=== PATIENT | male | born 1955 | race Caucasian/White ===

== ENCOUNTER 2018-01-27 11:42 | Emergency (ER) | payer OTHER ==
--- NOTE | 2018-01-27 13:04 | RAD REPORT ---
EXAM DESCRIPTION: RAD - Pelvis - 01/27/2018 12:45 pm CLINICAL HISTORY: Fall a few weeks earlier, persistent pelvic and hip pain, history of prior fracture fixation on the l eft. COMPARISON: None. TECHNIQUE: AP imaging of the pelvis was obtained. FINDINGS: No fracture of the bony pelvis. No dislocation of either proximal femur. Surgical hardware is present on the left. Mild SI joint degenerative change and mild lower lumbar degenerative change. Phleboliths are present in the lower pelvis. Arterial calcifications are seen. No soft tissue abnormality. IMPRESSION: Degenerative changes to the pelvis with no acute findings seen.
--- NOTE | 2018-01-27 13:05 | RAD REPORT ---
EXAM DESCRIPTION: RAD - Hip Left 2 View - 01/27/2018 12:44 pm CLINICAL HISTORY: Fall several weeks earlier with persistent hip pain and pelvic pain, history of pr ior left femur fracture repair COMPARISON: No remote imaging available. FINDINGS: AP and frogleg views of the left hip were obtained. No acute fracture of the proximal femu r and no dislocation of the femoral head. No AVN identified in the femoral head. No fracture of the h ardware. No gross evidence for hardware migration. No acute or destructive bony process seen. Left angelika pelvis shows no acute component. No suspicious soft tissue finding. IMPRESSION: Negative left hip examination for acute or significant findings. Old fracture fixation hardware is in place. No acute hardware finding suspected.
[2018-01-27] MEDS ORDERED: KETOROLAC 30 MG/ML INJ ONE (13:39)
--- NOTE | 2018-01-27 14:28 | ER ---
Nurse's Notes [facility] Name: Abdiaziz Hernández Age: 62 yrs Sex: Male : 1955 Arrival Date: 01/27/2018 Time: 11:44 Bed 13 Private MD: Diagnosis: Pain in left hip Presentation: 01/27 11:50 Presenting complaint: Patient states: I had a fall a few weeks ago and landed on my la1 left hip which I have a shanique and screw in and I have a lot of pain there, I also have not been to a doctor for 4 years and I want to make sure nothing else is going on. Pt reports "I don't breathe as good as I use to and I use to be on a medication to help with my wheezing but I ran out". Transition of care: patient was not received from another setting of care. Onset of symptoms was January 27, 2018. Risk Assessment: Do you want to hurt yourself or someone else? Patient reports no desire to harm self or others. Initial Sepsis Screen: Does the patient meet any 2 criteria? No. Patient's initial sepsis screen is negative. Does the patient have a suspected source of infection? No. Patient's initial sepsis screen is negative. Care prior to arrival: None. 11:50 Method Of Arrival: Wheelchair la1 11:50 Acuity: RENETTA 3 la1 Historical: - Allergies: 11:52 No Known Allergies; la1 - Home Meds: 11:55 none [Active]; rb1 - PMHx: 11:52 Hypertension; unknown psych disorder; hepatitis C; la1 - PSHx: 11:52 left hip; right wrist; la1 - Immunization history:: Adult Immunizations up to date. - Social history:: Smoking status: Patient uses tobacco products, smokes one-half pack cigarettes per day. - Ebola Screening: : No symptoms or risks identified at this time. Screenin:55 Abuse screen: Denies threats or abuse. Nutritional screening: No deficits noted. rb1 Tuberculosis screening: No symptoms or risk factors identified. Fall Risk Fall in past 12 months (25 points). Secondary diagnosis (15 points) impaired mobility, No IV (0 pts). Ambulatory Aid- Crutches/Cane/Walker (15 pts). Gait- Impaired (20 pts.). Mental Status- Oriented to own ability (0 pts). Total West Fall Scale indicates High Risk Score (45 or more points). Fall prevention measures have been instituted. Side Rails Up X 2 Placed Close to Nursing Station 1:1 Attendant Assigned Frequent Obs/Assessments Occuring Family Present and informed to notify staff if the need to leave the bedside As available patient and family educated on Fall Prevention Program and Strategies. Assessment: 11:55 General: Appears unkempt, Behavior is calm, cooperative. General: Smells of alcohol. rb1 Pain: Complains of pain in left hip Pain currently is 8 out of 10 on a pain scale. Pain began x 2 weeks. Neuro: Level of Consciousness is awake, alert, obeys commands, Oriented to person, place, time, situation. Cardiovascular: Capillary refill < 3 seconds is brisk in bilateral fingers. Respiratory: Reports shortness of breath Airway is patent Respiratory effort is even, unlabored, Respiratory pattern is regular, symmetrical. GI: No signs and/or symptoms were reported involving the gastrointestinal system. : No signs and/or symptoms were reported regarding the genitourinary system. Derm: Skin is dry, Skin is normal, Skin temperature is warm. Musculoskeletal: Range of motion: intact in all extremities, Pt. ambulates with cane. Injury Description: Fell 2 weeks ago. 12:50 Reassessment: Patient appears in no apparent distress at this time. No changes from rb1 previously documented assessment. Brother at bedside. 13:46 Reassessment: Patient appears in no apparent distress at this time. Patient and/or rb1 family updated on plan of care and expected duration. Pain level reassessed. Patient is alert, oriented x 3, equal unlabored respirations, skin warm/dry/pink. Pt. medicated for pain. 14:40 Reassessment: Patient appears in no apparent distress at this time. Patient and/or rb1 family updated on plan of care and expected duration. Pain level reassessed. Patient is alert, oriented x 3, equal unlabored respirations, skin warm/dry/pink. Pt. ambulated up and down the alicia without difficulty. Vital Signs: 11:53 BP 128 / 90; Pulse 91; Resp 16; Temp 98.0; Pulse Ox 92% on R/A; Weight 72.57 kg; Height la1 5 ft. 11 in. (180.34 cm); 12:50 BP 129 / 85; Pulse 84; Resp 18; Pulse Ox 99% on R/A; rb1 13:48 BP 125 / 79; Pulse 81; Resp 19; Pulse Ox 98% on R/A; rb1 14:40 BP 124 / 81; Pulse 88; Resp 17; Pulse Ox 98% on R/A; rb1 11:53 Body Mass Index 22.32 (72.57 kg, 180.34 cm) la1 ED Course: 11:44 Patient arrived in ED. as 11:52 Triage completed. la1 11:53 Arm band placed on left wrist. la1 11:55 Patient has correct armband on for positive identification. Bed in low position. Call rb1 light in reach. Side rails up X2. Pulse ox on. NIBP on. 11:56 Yahir Brice PA is PHCP. cp 11:57 Anup Mckeon MD is Attending Physician. cp 12:20 Urvashi Larson, RN is Primary Nurse. rb1 12:37 XRAY Pelvis In Process Unspecified. EDMS 12:37 XRAY Hip LEFT 2 view In Process Unspecified. EDMS 14:44 No provider procedures requiring assistance completed. Patient did not have IV access rb1 during this emergency room visit. Administered Medications: 13:35 Drug: TORadol 60 mg Route: IM; Site: right gluteus; rb1 14:05 Follow up: Response: No adverse reaction; Pain is decreased; pain 5/10 rb1 Intake: Outcome: 14:28 Discharge ordered by MD. cp 14:44 Patient left the ED. rb1 14:44 Discharged to home via wheelchair, with family. rb1 14:44 Condition: stable 14:44 Discharge instructions given to patient, Instructed on discharge instructions, follow up and referral plans. medication usage, Demonstrated understanding of instructions, follow-up care, medications, Prescriptions given X 1. Signatures: Dispatcher [employer] EDMS Anabella Pisano Lee RN RN la1 Yahir Brice PA PA cp Urvashi Larson, RN RN rb1
--- NOTE | 2018-01-27 14:28 | EDPHYS ---
Physician Documentation [facility] Name: Abdiaziz Hernández Age: 62 yrs Sex: Male : 1955 Arrival Date: 01/27/2018 Time: 11:44 Bed 13 Private MD: ED Physician Anup Mckeon HPI: 01/27 12:15 This 62 yrs old Male presents to ER via Wheelchair with complaints of Hip cp Pain, Rib Pain. 12:15 The patient or guardian reports pain. sustained from a fall, The patient is able to cp self ambulate. The patient is able to bear their full body weight. The complaints affect the left hip. Onset: The symptoms/episode began/occurred "few weeks" ago. 12:15 Associated signs and symptoms: Pertinent negatives: abdominal pain, altered mental cp status, chest pain, diarrhea, fever, headache, vomiting, weakness. 12:15 Patient c/o continued left hip pain since fall "several weeks" ago. Reports he believes cp he broke a rib with fall, but reports continued pain and difficulty ambulating due to left hip pain. Historical: - Allergies: 11:52 No Known Allergies; la1 - Home Meds: 11:55 none [Active]; rb1 - PMHx: 11:52 Hypertension; unknown psych disorder; hepatitis C; la1 - PSHx: 11:52 left hip; right wrist; la1 - Immunization history:: Adult Immunizations up to date. - Social history:: Smoking status: Patient uses tobacco products, smokes one-half pack cigarettes per day. - Ebola Screening: : No symptoms or risks identified at this time. ROS: 12:20 MS/extremity: Positive for pain, of the left hip, Negative for decreased range of cp motion, deformity. 12:20 Eyes: Negative for injury, pain, redness, and discharge. cp 12:20 Constitutional: Negative for body aches, chills, fever, poor PO intake. 12:20 Cardiovascular: Negative for chest pain, edema, palpitations. 12:20 Respiratory: Negative for cough, shortness of breath, wheezing. 12:20 Abdomen/GI: Negative for abdominal pain, nausea, vomiting, and diarrhea. 12:20 Neuro: Negative for altered mental status, headache, weakness. 12:20 All other systems are negative. Exam: 12:28 Constitutional: The patient appears in no acute distress, alert, awake, cp non-diaphoretic, non-toxic, well developed, smells of alcohol, unkempt. 12:28 Head/Face: Normocephalic, atraumatic. cp 12:28 Eyes: Periorbital structures: appear normal, Conjunctiva: normal, no exudate, no injection, Sclera: no appreciated abnormality, Lids and lashes: appear normal, bilaterally. 12:28 ENT: External ear(s): are unremarkable, Nose: is normal, Mouth: Lips: dry, Oral mucosa: moist, Posterior pharynx: Airway: no evidence of obstruction, patent. 12:28 Neck: ROM/movement: is normal, is supple, without pain, no range of motions limitations, no nuchal rigidity. 12:28 Chest/axilla: Inspection: normal, Palpation: is normal, no crepitus, no tenderness. 12:28 Cardiovascular: Rate: normal, Rhythm: regular, Edema: is not appreciated, JVD: is not appreciated. 12:28 Respiratory: the patient does not display signs of respiratory distress, Respirations: normal, no use of accessory muscles, no retractions, no splinting, no tachypnea, labored breathing, is not present, Breath sounds: are clear throughout, no decreased breath sounds, no stridor, no wheezing. 12:28 Abdomen/GI: Inspection: abdomen appears normal, Palpation: abdomen is soft and non-tender, in all quadrants. 12:28 Back: pain, is absent, ROM is normal. 12:28 Musculoskeletal/extremity: Extremities: grossly normal except: noted in the left hip: pain, tenderness, There is no evidence of decreased ROM, deformity. 12:28 Skin: cellulitis, is not appreciated, no rash present. 12:28 Neuro: Orientation: to person, place \\T\\ time. Mentation: lucid, able to follow commands, Motor: moves all fours, strength is normal. Vital Signs: 11:53 BP 128 / 90; Pulse 91; Resp 16; Temp 98.0; Pulse Ox 92% on R/A; Weight 72.57 kg; Height la1 5 ft. 11 in. (180.34 cm); 12:50 BP 129 / 85; Pulse 84; Resp 18; Pulse Ox 99% on R/A; rb1 13:48 BP 125 / 79; Pulse 81; Resp 19; Pulse Ox 98% on R/A; rb1 14:40 BP 124 / 81; Pulse 88; Resp 17; Pulse Ox 98% on R/A; rb1 11:53 Body Mass Index 22.32 (72.57 kg, 180.34 cm) la1 MDM: 11:57 Patient medically screened. cp 12:15 Differential diagnosis: hip fracture, intertrochanteric fracture, femoral neck cp fracture, femoral shaft fracture, arthritis. 14:25 Data reviewed: vital signs, nurses notes, radiologic studies, plain films. cp 14:25 Test interpretation: by ED physician or midlevel provider: plain radiologic studies. cp Counseling: I had a detailed discussion with the patient and/or guardian regarding: the historical points, exam findings, and any diagnostic results supporting the discharge/admit diagnosis, radiology results, the need for outpatient follow up, a family practitioner, to return to the emergency department if symptoms worsen or persist or if there are any questions or concerns that arise at home. Response to treatment: the patient's symptoms have markedly improved after treatment, VSS. Pain improved and patient observed ambulating and bearing weight on left hip while in ED. Will discharge to home for continued monitoring. 01/27 12:10 Order name: XRAY Pelvis cp 01/27 12:10 Order name: XRAY Hip LEFT 2 view cp 01/27 13:12 Order name: Misc. Order: ambulate patient; Complete Time: 14:26 cp Administered Medications: 13:35 Drug: TORadol 60 mg Route: IM; Site: right gluteus; rb1 14:05 Follow up: Response: No adverse reaction; Pain is decreased; pain 5/10 rb1 Disposition: 14:45 Co-signature as Attending Physician, Anup Mckeon MD I agree with the assessment and kdr plan of care. Disposition: 01/27/18 14:28 Discharged to Home. Impression: Pain in left hip. - Condition is Stable. - Discharge Instructions: Hip Pain. - Prescriptions for Mobic 7.5 mg Oral Tablet - take 1 tablet by ORAL route once daily take with food; 20 tablet. - Medication Reconciliation Form, Thank You Letter, Antibiotic Education, Prescription Opioid Use form. - Follow up: Private Physician; When: 1 - 2 days; Reason: Recheck today's complaints. - Problem is new. - Symptoms have improved. Signatures: Dispatcher [employer] EDMS Anup Mckeon MD MD kdr Blake Townsend RN RN la1 Yahir Brice PA PA cp Urvashi Larson, RN RN rb1 Corrections: (The following items were deleted from the chart) 14:44 14:28 01/27/2018 14:28 Discharged to Home. Impression: Pain in left hip. Condition is rb1 Stable. Forms are Medication Reconciliation Form, Thank You Letter, Antibiotic Education, Prescription Opioid Use. Follow up: Private Physician; When: 1 - 2 days; Reason: Recheck today's complaints. Problem is new. Symptoms have improved. cp
== END 2018-01-27 14:44 | disposition home or self-care (01) ==
LOC: ER 11:42
DX: M25.552 Pain in left hip (principal); I10 Essential (primary) hypertension; F17.210 Nicotine dependence, cigarettes, uncomplicated
CPT/HCPCS: 72170; 96372; 99284